=== PATIENT | female | born 1965 | race Caucasian/White ===

== ENCOUNTER 2016-08-04 22:21 | Emergency (ER) | payer OTHER ==
[~2016-08-04] VITALS: Ht 167.6 cm; Wt 85.0 kg
[~2016-08-04 22:21] MED LIST: HYDR-3498 PO; INSU100C SQ; INSU200I SQ; LANT3I SC; ONDA4TAB8 PO; SENN-53 PO
[2016-08-04 22:28] VITALS: Ht 167.6 cm; Wt 85.0 kg
--- NOTE | 2016-08-05 00:53 | ERA ---
ER Documentation Chief Complaint Date/Time DATE: 08/05/16 TIME: 00:53 Chief Complaint Chest discomfort HPI The patient is a 51-year-old female, presenting to the ER because of chest discomfort that began about 8 PM yesterday. She has similar symptoms previously , no aggravating or relieving factor. He denies fever, chills, neck pain, chest pain with exertion or vomiting or diaphoresis, dyspnea, abdominal pain, vomiting, dysuria, diarrhea. She does not smoke nor drink Past medical history: Diabetes mellitus Past surgical history: Appendectomy ROS All systems reviewed and are negative except as per history of present illness. Medications Home Meds Active Scripts Sennosides* (Senna Lax*) 8.6 Mg Tablet, 1 TAB PO Q12H Y for CONSTIPATION, #20 TAB Prov:JAIR BEAULIEU 10/23/15 Reported Medications Multivitamins* (Theragran*) 1 Tab Tab, 1 TAB PO DAILY, TAB 08/05/16 Sertraline Hcl* (Zoloft*) 50 Mg Tablet, 50 MG PO DAILY, #30 TAB 08/05/16 Insulin Lispro (Humalog Kwikpen) 200 Unit/1 Ml Insuln.pen, 80 UNIT SQ DAILY, EA 10/21/15 Insulin Lispro (Humalog) 100 Unit/1 Ml Cartridge, 80 UNIT SQ TID 10/21/15 Insulin Glargine* (Lantus*) 100 Unit/Ml Soln, 80 UNIT SC DAILY, #1 VIAL 10/21/15 Discontinued Scripts Ondansetron Hcl* (Zofran*) 4 Mg Tablet, 4 MG PO Q6H Y for NAUSEA AND OR VOMITING , #20 TAB Prov:JAIR BEAULIEU 10/23/15 Hydrocodone Bit-Acetaminophen (Hydrocodone Bit-APAP) 5-325MG Tablet, 1 TAB PO Q4 Y for PAIN LEVEL 6-10, #20 TAB Prov:JAIR BEAULIEU 10/23/15 Allergies Allergies: Coded Allergies: No Known Allergy (Unverified , 08/05/16) PMhx/Soc History of Surgery: No Anesthesia Reaction: No Hx Neurological Disorder: No Hx Respiratory Disorders: No Hx Cardiac Disorders: No Hx Psychiatric Problems: No Hx Miscellaneous Medical Probl: Yes (DM) Hx Alcohol Use: No Hx Substance Use: No Hx Tobacco Use: No Smoking Status: Never smoker Physical Exam Vitals Vital Signs Date Time Temp Pulse Resp B/P Pulse Ox O2 Delivery O2 Flow Rate FiO2 08/05/16 02:39 59 14 96/59 100 Room Air 08/04/16 22:28 97.8 88 20 105/61 98 Physical Exam Const: No acute distress. Head: Atraumatic. Eyes: Normal Conjunctiva. ENT: Normal External Ears, Nose and Mouth. Neck: Full range of motion. No meningismus. Resp: Clear to auscultation bilaterally. Cardio: Regular rate and rhythm. Abd: Soft, non distended, normal bowel sounds, non tender. Skin: No petechiae or rashes. Back: No midline or flank tenderness. Ext: No cyanosis, or edema. Neur: Awake and alert. No focal deficit Psych: Normal Mood and Affect. Result Diagram: 08/05/1611408/05/16 011 Results 24 hrs Laboratory Tests Test 08/05/16 01:15 08/05/16 04:00 White Blood Count 4.810^3/ul Red Blood Count 4.3510^6/ul Hemoglobin 14.2g/dl Hematocrit 40.5% Mean Corpuscular Volume 93.1fl Mean Corpuscular Hemoglobin 32.6pg Mean Corpuscular Hemoglobin Concent 35.1g/dl Red Cell Distribution Width 11.7% Platelet Count 00302^3/UL Mean Platelet Volume 10.0fl Neutrophils % 46.3% Lymphocytes % 41.1% Monocytes % 7.5% Eosinophils % 4.1% Basophils % 0.6% Nucleated Red Blood Cells % 0.0/100WBC Neutrophils # 2.210^3/ul Lymphocytes # 2.010^3/ul Monocytes # 0.410^3/ul Eosinophils # 0.210^3/ul Basophils # 0.010^3/ul Nucleated Red Blood Cells # 0.010^3/ul Prothrombin Time 13.3Sec Prothrombin Time Ratio 1.0 INR International Normalized Ratio 1.01 Activated Partial Thromboplast Time 30.2Sec Sodium Level 141mmol/L Potassium Level 3.8mmol/L Chloride Level 105mmol/L Carbon Dioxide Level 25mmol/L Anion Gap 15 Blood Urea Nitrogen 13mg/dl Creatinine 0.51mg/dl Glucose Level 208mg/dl Calcium Level 9.2mg/dl Troponin I < 0.012ng/ml < 0.012ng/ml Current Medications Medications (Trade) Dose Ordered Sig/Ofe Route PRN Reason Start Time Stop Time Status Last Admin Dose Admin Ketorolac Tromethamine (Toradol) 30 mg ONCE STAT IV 08/05/16 01:15 08/05/16 01:17 DC 08/05/16 01:25 Procedures/[place] [id number] Radiology Main Line: [phone] DIAGNOSTIC IMAGING REPORT Patient: ERIC TSE : 1965 Age: 51 Sex: F MR #: [id number] DOS: 08/05/16 0115 Ordering MD: SUJEY DOMÍNGUEZ MD Location: E/R Room/Bed: PROCEDURE: Chest. CLINICAL INDICATION: Chest pain. TECHNIQUE: Single frontal view of the chest was obtained. COMPARISON: 10/22/2015. FINDINGS: The cardiac silhouette is within normal limits. The aortic arch is unremarkable. There is no focal consolidation, vascular congestion or pleural effusion. There is no pneumothorax. IMPRESSION: No evidence for active cardiopulmonary disease. .Gilberto Stein MD, MD Date Time Electronically viewed and signed by .Gilberto Stein MD, MD on 08/05/2016 01:48 .T/ CC: SUJEY DOMÍNGUEZ MD EKG: At 2229 hrs. read by emergency physician Rate/Rhythm: Normal Sinus Rhythm 83 beats/min QRS, ST, T-waves: No ST elevation, no T inversion Impression: Normal EKG EKG: At 0251 hrs. read by emergency physician Rate/Rhythm: Normal Sinus Rhythm 56 beats/min, sinus arrhythmia QRS, ST, T-waves: No ST elevation, no T inversion Impression: Normal EKG MEDICAL MAKING DECISION: The patient is a 51-year-old female, presenting to the ER because of acute chest pain of unclear etiology. She was treated with Toradol 30 minute IV for pain with good response. I do not suspect ACS The differential diagnoses considered include but are not limited to acute coronary syndrome, acute myocardial infarction, pericarditis, pulmonary embolism , aortic dissection, pneumonia, pleural effusion, pneumothorax, GERD, chest wall pain. Departure Diagnosis: Primary Impression: Chest pain Condition: Good Comments The patient presents with chest pain and I considered pulmonary embolism, aortic dissection, pneumothorax among other diagnoses. Evaluation for acute coronary syndrome was performed. The HEART score (www.mdcalc.com) was utilized for risk stratification and found to be <= 3. Repeat EKG and troponin @ 3 hours were unchanged. Based on this evaluation the patients risk of major adverse cardiac events is <1%. Shared decision making occurred with patient and the decision has been made to discharge the patient for outpatient evaluation and functional study within 72 hours. SUJEY DOMÍNGUEZ MD Aug 05, 2016 00:53
[2016-08-05] MEDS ORDERED: KETOROLAC 30 MG INJ IV STA (01:15)
[2016-08-05 01:42] LABS: ADD SCAN DIFF NO; BASOPHILS % 0.6 % (0.0-2.0); EOSINOPHILS # 0.2 10^3/ul (0.0-0.5); EOSINOPHILS % 4.1 % (0.0-7.0); HEMATOCRIT 40.5 % (37.0-47.0); HEMOGLOBIN 14.2 g/dl (12.0-16.0); LYMPHOCYTES % 41.1 % (15.0-51.0); MEAN CORPUSCULAR HEMOGLOBIN 32.6 pg (29.0-33.0); MEAN CORPUSCULAR HGB CONC 35.1 g/dl (32.0-37.0); MEAN CORPUSCULAR VOLUME 93.1 fl (82.0-101.0); MONOCYTE # 0.4 10^3/ul (0.3-0.9); MONOCYTES % 7.5 % (0.0-11.0); NEUTROPHIL # 2.2 10^3/ul (1.6-7.5); NEUTROPHILS % 46.3 % (39.0-77.0); PLATELET COUNT 203 10^3/UL (140-415); RED BLOOD COUNT 4.35 10^6/ul (4.20-5.40); RED CELL DISTRIBUTION WIDTH 11.7 % (11.5-14.5); WHITE BLOOD COUNT 4.8 10^3/ul (4.8-10.8)
--- NOTE | 2016-08-05 01:48 | RADRPT ---
PROCEDURE: Chest. CLINICAL INDICATION: Chest pain. TECHNIQUE: Single frontal view of the chest was obtained. COMPARISON: 10/22/2015. FINDINGS: The cardiac silhouette is within normal limits. The aortic arch is unremarkable. There is no focal consolidation, vascular congestion or pleural effusion. There is no pneumothorax. IMPRESSION: No evidence for active cardiopulmonary disease. .Gilberto Stein MD, Date Time Electronically viewed and signed by .Gilberto Stein MD, on 08/05/2016 01:48 .T/
[2016-08-05 01:51] LABS: INR 1.01; PARTIAL THROMBOPLASTIN TIME 30.2 Sec (25.0-35.0); PROTIME 13.3 Sec (12.2-14.2)
[2016-08-05 01:56] LABS: ANION GAP 15 (8-16); BLOOD UREA NITROGEN 13 mg/dl (7-20); CALCIUM 9.2 mg/dl (8.4-10.2); CARBON DIOXIDE 25 mmol/L (21-31); CHLORIDE 105 mmol/L (97-110); CREATININE 0.51 mg/dl (0.44-1.00); GLUCOSE 208 mg/dl (70-220); POTASSIUM 3.8 mmol/L (3.5-5.1); SODIUM 141 mmol/L (135-144)
[2016-08-05 02:16] LABS: TROPONIN-I < 0.012 ng/ml (0.00-0.12)
[2016-08-05] MEDS ORDERED: MULTI PO (02:51)
[2016-08-05] MEDS ORDERED: SERT50TA PO (02:51)
[2016-08-05 05:30] VITALS: BP 91/63; PULSE 68; RESP 17
== END 2016-08-05 05:30 | disposition home or self-care (01) ==
LOC: E/R 22:21
DX: R07.9 Chest pain, unspecified (principal); E11.9 Type 2 diabetes mellitus without complications
CPT/HCPCS: 36415; 71010; 80048; 84484; 85025; 85610; 85730; 93005; 96374; J1885; Z7502

== ENCOUNTER 2016-12-08 17:17 | Emergency (ER) | payer OTHER ==
[~2016-12-08] VITALS: Ht 165.1 cm; Wt 84.6 kg
[~2016-12-08 17:17] MED LIST changes: -HYDR-3498 PO; +MULTI PO; -ONDA4TAB8 PO; +SERT50TA PO
[2016-12-08 17:18] VITALS: Ht 165.1 cm; Wt 84.6 kg
[2016-12-08] MEDS ORDERED: ONDANSETRON 4 MG INJ IV STA (20:54)
[2016-12-08] MEDS ORDERED: KETOROLAC 15 MG INJ IV STA (20:54)
[2016-12-08] MEDS ORDERED: SOD CHLORIDE 0.9% 1,000 ML IV STA (20:54)
[2016-12-09] MEDS ORDERED: morphine 4 MG/ML VIAL IV ONE (00:10)
[2016-12-09] MEDS ORDERED: ONDANSETRON 4 MG INJ IV ONE (00:10)
[2016-12-09] MEDS ORDERED: IBUP-1542 PO (00:17)
[2016-12-09] MEDS ORDERED: OXYC-279 PO (00:17)
--- NOTE | 2016-12-09 00:21 | ERD ---
ER Documentation Chief Complaint Chief Complaint lt upper abd pain x 2 days with nausea HPI 51-year-old woman presents with abdominal pain 2 days with nausea. Abdominal pain has been mostly to the left flank and groin, she denies right upper quadrant abdominal pain. She has had no fevers or chills, no vomiting or diarrhea, no dysuria, no complaints of chest pain or shortness of breath. ROS All systems reviewed and are negative except as per history of present illness. Medications Home Meds Active Scripts Oxycodone HCl/Acetaminophen (Percocet 5-325 mg Tablet) 1 Each Tablet, 1 EACH PO TID for PAIN, #12 TAB Prov:CAROLINE OGLESBY MD 12/09/16 Ibuprofen* (Ibuprofen*) 600 Mg Tablet, 600 MG PO Q8 for PAIN AND/OR INFLAMMATION , #30 TAB Prov:CAROLINE OGLESBY MD 12/09/16 Sennosides* (Senna Lax*) 8.6 Mg Tablet, 1 TAB PO Q12H Y for CONSTIPATION, #20 TAB Prov:JAIR BEAULIEU 10/23/15 Reported Medications Multivitamins* (Theragran*) 1 Tab Tab, 1 TAB PO DAILY, TAB 08/05/16 Sertraline Hcl* (Zoloft*) 50 Mg Tablet, 50 MG PO DAILY, #30 TAB 08/05/16 Insulin Lispro (Humalog) 100 Unit/1 Ml Cartridge, 30 UNIT SQ TID 10/21/15 Insulin Glargine* (Lantus*) 100 Unit/Ml Soln, 90 UNIT SC QHS, #1 VIAL 10/21/15 Discontinued Reported Medications Insulin Lispro (Humalog Kwikpen) 200 Unit/1 Ml Insuln.pen, 80 UNIT SQ DAILY, EA 10/21/15 Allergies Allergies: Coded Allergies: No Known Allergy (Unverified , 12/08/16) PMhx/Soc Diabetes mellitus, obesity History of Surgery: No Anesthesia Reaction: No Hx Neurological Disorder: No Hx Respiratory Disorders: No Hx Cardiac Disorders: No Hx Psychiatric Problems: No Hx Miscellaneous Medical Probl: Yes (DM) Hx Alcohol Use: No Hx Substance Use: No Hx Tobacco Use: No Smoking Status: Never smoker FmHx Family History: No diabetes Physical Exam Vitals Vital Signs Date Time Temp Pulse Resp B/P Pulse Ox O2 Delivery O2 Flow Rate FiO2 12/09/16 00:28 97.9 74 19 105/71 100 Room Air 12/09/16 00:22 74 18 100/60 100 Room Air 12/08/16 23:32 97.9 64 18 104/56 97 Room Air 12/08/16 19:32 97.9 71 18 102/56 98 Room Air 12/08/16 17:18 97.9 72 18 102/56 98 Physical Exam GENERAL: Well-developed, well-nourished, well-hydrated, in no apparent distress , looks nontoxic in appearance HEENT: Moist mucous membranes, pink conjunctiva, no cervical spine tenderness or step-off deformities, no goiter, no jaundice or icterus, extraocular movements intact without pain. No submandibular induration, and no pharyngeal erythema NEURO: Alert and oriented 3, cranial nerves II through XII intact bilaterally, pupils equal round reactive to light, no focal deficits or facial asymmetry, sensation intact distally Strength 5/5 in upper and lower extremities bilaterally CARDIAC: Regular rate and rhythm, no murmurs rubs or gallops LUNGS: Clear bilaterally no wheezing crackles or stridor ABDOMEN: Soft nontender, no guarding, no rigidity, no rebound, no psoas sign no obturator sign. Normoactive bowel sounds SKIN: Warm and dry to touch, no abrasions, contusions, or hematomas, no lacerations, no ecchymosis, no target lesions, and without ulcers EXTREMITIES: No clubbing cyanosis or edema, calves are bilaterally symmetrical, no Homans sign, no popliteal cord sign. Distal pulses equal and bilateral PSYCH: Normal affect without agitation or irritability Result Diagram: 12/08/16210512/08/162105 Results 24 hrs Laboratory Tests Test 12/08/16 19:26 12/08/16 19:27 12/08/16 21:06 12/08/16 21:07 Bedside Urine pH (LAB) 5.5 Bedside Urine Protein (LAB) Negative Bedside Urine Glucose (UA) 0.50% Bedside Urine Ketones (LAB) Negative Bedside Urine Blood 1+ Bedside Urine Nitrite (LAB) Negative Bedside Urine Leukocyte Esterase (L Negative Urine Color YELLOW Urine Clarity CLEAR Urine pH 5.0 Urine Specific [place] 1.017 Urine Ketones TRACEmg/dL Urine Nitrite NEGATIVEmg/dL Urine Bilirubin NEGATIVEmg/dL Urine Urobilinogen 1+mg/dL Urine Leukocyte Esterase NEGATIVELeu/ul Urine Hemoglobin NEGATIVEmg/dL Urine Glucose 3+mg/dL Urine Total Protein NEGATIVEmg/dl White Blood Count 4.510^3/ul Red Blood Count 4.0810^6/ul Hemoglobin 13.0g/dl Hematocrit 38.5% Mean Corpuscular Volume 94.4fl Mean Corpuscular Hemoglobin 31.9pg Mean Corpuscular Hemoglobin Concent 33.8g/dl Red Cell Distribution Width 12.4% Platelet Count 44754^3/UL Mean Platelet Volume 9.7fl Neutrophils % 48.2% Lymphocytes % 39.3% Monocytes % 7.4% Eosinophils % 4.2% Basophils % 0.7% Nucleated Red Blood Cells % 0.0/100WBC Neutrophils # 2.210^3/ul Lymphocytes # 1.810^3/ul Monocytes # 0.310^3/ul Eosinophils # 0.210^3/ul Basophils # 0.010^3/ul Nucleated Red Blood Cells # 0.010^3/ul Sodium Level 142mmol/L Potassium Level 3.9mmol/L Chloride Level 108mmol/L Carbon Dioxide Level 23mmol/L Anion Gap 15 Blood Urea Nitrogen 11mg/dl Creatinine 0.47mg/dl Glucose Level 183mg/dl Calcium Level 8.5mg/dl Total Bilirubin 0.4mg/dl Direct Bilirubin 0.00mg/dl Indirect Bilirubin 0.4mg/dl Aspartate Amino Transf (AST/SGOT) 22IU/L Alanine Aminotransferase (ALT/SGPT) 31IU/L Alkaline Phosphatase 95IU/L Total Protein 7.4g/dl Albumin 4.2g/dl Globulin 3.20g/dl Albumin/Globulin Ratio 1.31 Lipase 39U/L Bedside Glucose 181mg/dL Test 12/08/16 21:08 Bedside Glucose 183mg/dL Current Medications Medications (Trade) Dose Ordered Sig/Ofe Route PRN Reason Start Time Stop Time Status Last Admin Dose Admin Sodium Chloride (NS) 1,000 ml @ 1,000 mls/hr Q1H STAT IV 12/08/16 20:54 12/08/16 21:53 DC 12/08/16 21:11 Ondansetron HCl (Zofran Inj) 4 mg ONCE STAT IV 12/08/16 20:54 12/08/16 20:55 DC 12/08/16 21:11 Ketorolac Tromethamine (Toradol) 15 mg ONCE STAT IV 12/08/16 20:54 12/08/16 20:55 DC 12/08/16 21:11 Morphine Sulfate (morphine) 4 mg ONCE ONCE IV 12/09/16 00:10 12/09/16 00:14 DC 12/09/16 00:21 Ondansetron HCl (Zofran Inj) 4 mg ONCE ONCE IV 12/09/16 00:10 12/09/16 00:14 DC 12/09/16 00:21 Procedures/MDM IV line was established patient was placed on machine tack puller rhythm strip revealed a sinus rhythm at about 80 bpm with upright P and T waves. Patient was afebrile CT scan of the abdomen and pelvis was performed, given the patient's symptoms. Positive cholelithiasis, no cholecystitis noted. There was no infectious pathology noted, vascular structures were unremarkable. Please refer radiologist 's dictation for full report. I administered 1 L normal saline intravenously and Toradol 15 mg IV 1. For later complaints of pain she received morphine 4 mg IV and Zofran 4 mg IV with resolution of pain. Urine analysis trace blood otherwise negative for infection. CBC and electrolytes are normal, liver function tests are normal Differential diagnoses considered, included but not limited to acute coronary syndrome, pulmonary embolism, aortic dissection, abdominal aortic aneurysm, sepsis, stroke, meningitis, encephalitis, pneumonia, appendicitis, cholecystitis , bowel obstruction, pyelonephritis, nephrolithiasis, cystitis, as well as metabolic, hematologic, and electrolyte abnormalities. As well as abscess, cellulitis, fractures, and dislocations. Patient feels much better at this time, and vital signs are normal, symptoms have improved. I did give strict instructions to return to the ED if symptoms continue or worsen, patient will otherwise follow-up with primary care physician. Patient understood instructions and agreed to plan. Disclaimer: Inadvertent spelling and grammatical errors are likely due to EHR/ dictation software use and do not reflect on the overall quality of patient care. Also, please note that the electronic time recorded on this note does not necessarily reflect the actual time of the patient encounter. Departure Diagnosis: Primary Impression: Cholelithiasis Cholelithiasis location: gallbladder Cholecystitis presence: without cholecystitis Biliary obstruction: without biliary obstruction Qualified Code : K80.20 - Calculus of gallbladder without cholecystitis without obstruction Additional Impressions: Flank pain Hematuria Hematuria type: unspecified type Qualified Code: R31.9 - Hematuria, unspecified type Condition: Good Patient Instructions: Gallstones Referrals: CHERY PÉREZ (PCP) CAROLINE OGLESBY MD Dec 09, 2016 00:21
[2016-12-09 00:28] VITALS: BP 105/71; PULSE 74; RESP 19; TEMP 97.9
--- NOTE | 2016-12-12 08:39 | RADRPT ---
PROCEDURE: CT ABDOMEN AND PELVIS WITHOUT CONTRAST. CLINICAL INDICATION: Left quadrant and flank pain radiating to the back TECHNIQUE: CT scan of the abdomen and pelvis without contrast was performed on a multidetector hig h-resolution CT scanner. The patient was scanned without intravenous contrast. Coronal and sagittal reformatted images were obtained from the axial source images. Images were reviewed on a high-resol [employer] PACS workstation. The total exam CTDI equals 18.9 mGy and the total exam DLP equals 1076.75 mG y-cm. One or more of the following dose reduction techniques were used: Automated exposure control, Adjust ment of the mA and/or kV according to patient size, Use of iterative reconstruction technique. COMPARISON: October 21, 2015 FINDINGS: CT abdomen: The lung bases are clear. The heart size is normal. There is no pericardial effusion. The liver is normal in size and attenuation. There is no focal hepatic lesion. Multiple gallstones a re noted within the lumen of the gallbladder. The bile ducts are normal. The spleen is normal in size and there is no focal splenic lesion. The pancreas is unremarkable with no mass or evidence of pancreatitis. Both adrenals are normal with no enlargement or mass. Both kidneys are normal with no hydronephrosis, mass, or calculus. There is no ureteral calculus on either side. The visualized GI tract demonstrate normal caliber loops of small and large bowel. No evidence of shahab wel obstruction. Stool is noted large bowel suggestive of constipation. The appendix is not clearly identified, however no inflammatory changes within the right lower quadrant. There is a left lower a bdominal ventral hernia, containing loops of small bowel without evidence of obstruction or strangul ation. The unenhanced aorta is unremarkable. No significant retroperitoneal lymphadenopathy is present. CT pelvis: The bladder is within limits. The rectosigmoid colon demonstrate diverticulosis. No significant free fluid. No significant pelvic lymphadenopathy The visualized osseous structures appear to be within normal limits. IMPRESSION: 1. Gallstones in the gallbladder. No evidence of cholecystitis. Normal bile ducts. 2. No evidence of bowel obstruction. Stool filled loops of large bowel suggestive of constipation. S tatus post appendectomy. 3. Left lower abdominal ventral hernia, containing loops of small bowel without evidence of obstruct ion or strangulation. 4. No free fluid or free air. No gross focal fluid collections. 5. No urinary tract calculus or hydronephrosis. RPTAT: QQ .Nakul Alexander MD, Date Time Electronically viewed and signed by .Nakul Alexander MD, on 12/09/2016 08:51 .R/
== END 2016-12-09 00:29 | disposition home or self-care (01) ==
LOC: E/R 17:17
DX: K80.20 Calculus of gallbladder without cholecystitis without obstruction (principal); R31.9 Hematuria, unspecified; E11.9 Type 2 diabetes mellitus without complications; E66.9 Obesity, unspecified; Z68.31 Body mass index [BMI] 31.0-31.9, adult; Z79.4 Long term (current) use of insulin
CPT/HCPCS: 36415; 74176; 80053; 81003; 82962; 83690; 85025; 96374; 96375; 96376; J1885; J2270; J2405; J7030; Z7502

== ENCOUNTER 2018-04-30 07:46 | Emergency (ER) | payer OTHER ==
[~2018-04-30] VITALS: Ht 170.2 cm; Wt 85.9 kg
[~2018-04-30 07:46] MED LIST changes: +IBUP-1542 PO; -INSU200I SQ; +OXYC-279 PO; +SENN-120 PO; -SENN-53 PO
[2018-04-30 07:49] VITALS: BP 137/63; PULSE 90; RESP 18; Ht 170.2 cm; Wt 85.9 kg
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
[2018-04-30] MEDS ORDERED: HYDROCODONE/APAP (5/325) TAB PO ONE (08:30)
[2018-04-30] MEDS ORDERED: IBUP-1542 PO (10:27)
== END 2018-04-30 11:05 | disposition home or self-care (01) ==
LOC: FTE 07:46
DX: R51 Headache (principal); E11.9 Type 2 diabetes mellitus without complications; M79.602 Pain in left arm; Z79.4 Long term (current) use of insulin
CPT/HCPCS: 70486; 73030; 73060; 81025; Z7502; Z7610